=== PATIENT | female | born 1950 | race Caucasian/White ===

== ENCOUNTER 2020-10-24 07:29 | Day surgery (SDC) | payer MEDICARE, SELFPAY ==
[2020-10-24 07:49] VITALS: BP 169/94; PULSE 78; RESP 16; TEMP 35.9; O2SAT 96
[2020-10-24] MEDS: Tropicam./Phenyleph. (1/2.5%) 5 ML BTL OS ×3 (07:58→08:23)
[2020-10-24] MEDS: Balanced Salt Soln.-PLUS 500 ML BAG (09:08)
[2020-10-24] MEDS: Duovisc Viscoelastic System EACH 1 EACH (09:09)
[2020-10-24] MEDS: Lidocaine 1% Pres-Free 5 ML VIAL (09:10)
[2020-10-24] MEDS: Lidocaine 2% Jelly 6 ML SYR (09:11)
[2020-10-24] MEDS: Povidone-Iodine Ophth 30 ML BTL (09:15)
[2020-10-24] MEDS: Tetracaine 0.5% 4 ML BTL OS (09:16)
[2020-10-24] MEDS: Trypan Blue 0.06% 0.5 ML SYR (09:16)
[2020-10-24 09:26] VITALS: BP 159/84; PULSE 84; RESP 16; TEMP 36.2; O2SAT 93
--- NOTE | 2020-10-24 09:27 | W.PM.DSUDISC ---
Discharge Plan Disposition Patient Disposition: HOME Condition: Good Discharge Details Attending Provider: Abdiaziz Burroughs Primary Care Provider: Lata Sierra Home Meds and New Rx's Prescriptions: No Action carvedilol 25 mg tablet 25 mg PO BID RF: 0 carvedilol 12.5 mg tablet 12.5 mg PO BID RF: 0 simvastatin 10 mg Tablet 10 mg PO DAILY RF: 0 potassium chloride [Klor-Con 10] 10 mEq Tablet Extended Release 20 meq PO DAILY RF: 0 omeprazole 40 mg capsule,delayed release(DR/EC) 40 mg PO DAILY RF: 0 calcium carbonate [Calcium 500] 500 mg calcium (1,250 mg) Tablet 500 mg PO DAILY RF: 0 ferrous sulfate 325 mg (65 mg iron) Tablet 325 mg PO DAILY RF: 0 montelukast [Singulair] 10 mg Tablet 10 mg PO DAILY RF: 0 hydrochlorothiazide 25 mg Tablet 37.5 mg PO DAILY RF: 0 mupirocin 2 % ointment 1 applic TOPICAL BID PRNRF: 0 triamcinolone acetonide 0.1 % lotion 1 applic TOPICAL BID RF: 0 albuterol sulfate [ProAir HFA] 90 mcg/actuation Hfa Aerosol Inhaler 2 puff INHALATION Q6H PRNRF: 0 fluticasone propionate 50 mcg/actuation [place],Suspension 2 spray INTRANASAL DAILY RF: 0 clotrimazole 1 % cream 1 applic TOPICAL BID PRNRF: 0 loratadine 10 mg Tablet 10 mg PO DAILY RF: 0 amoxicillin-pot clavulanate 875-125 mg tablet 1 tab PO BID RF: 0 Anoro Ellipta 62.5-25 mcg/actuation Blister With Device 1 ea INHALATION DAILY RF: 0 calcium carbonate [Oysco-500] 500 mg calcium (1,250 mg) Tablet 500 mg PO RF: 0 exemestane [Aromasin] 25 mg Tablet 25 mg PO DAILY RF: 0 zolpidem 10 mg tablet 5 mg PO HS RF: 0 Afinitor 10 mg Tablet 10 mg PO DAILY RF: 0 Discharge Instructions Stand Alone Forms: Post-op Topical Cataract, Press Ganey (DSU) Discharge Orders Discharge Orders: Discharge Order (Routine); Ordered 10/24/20 Ordered By: Abdiaziz Burroughs DS: Diagnosis Discharge Diagnosis (1) Cortical cataract of left eye: Status: Resolved (2) Nuclear sclerotic cataract of left eye: Status: Resolved
--- NOTE | 2020-10-24 09:28 | ROE_ITS ---
Date of service: 10/24/20 Time of Service: 09:28 Operative Note Operative Note DATE OF PROCEDURE: 10/24/20 PRE-OP DIAGNOSIS: Nuclear/cortical cataract, left eye Poor red reflex, left eye secondary to cataract POST-OP DIAGNOSIS: same PROCEDURE: Cataract extraction using phacoemulsification with intraocular lens implant, left eye, using capsular staining with Vision Blue SURGEON: Abdiaziz Burroughs Refer to Anesthesia Record COMPLICATIONS: None Patient was transported to: same day Patient's condition: stable Implants: Donte and Donte / [employer] Tecnis [id number] Indications: Progressive decreased vision due to cataract, left eye, with poor red reflex Procedure Description: CATARACT SURGERY OPERATIVE REPORT PREOPERATIVE DIAGNOSIS: 1. Nuclear/cortical cataract, left eye 2. Poor red reflex secondary to #1 POSTOPERATIVE DIAGNOSIS: Same OPERATION: 1. Cataract extraction using phacoemulsification with posterior chamber intraocular lens implant, left eye. 2. Capsular staining with Vision Blue IOL: IOL Accounting Analyst/Model: Donte & Donte / UMA Tecnis [id number] IOL Power: + 20.0 diopters IOL Serial Number: [id number] Optic Diameter: 6.0 mm Haptic/Overall Diameter: 13.0 mm PHACO INFO: [employer]ur[employer] Vision System with OZil and Active Fluidics Cumulative Dispersed Energy (CDE): 8.77 seconds SURGEON: Abdiaziz Burroughs MD, WAYNE ANESTHESIA: Monitored A [facility] Care (MAC), with local sub-tenon's anesthetic infiltration COMPLICATIONS: None SPECIMENS: None INDICATIONS FOR PROCEDURE: The patient is a 70-year-old lady with history of diminished visual acuity in her left eye. She is noted to have a significant nuclear and cortical cataract. The option of cataract surgery was offered to the patient and she wished to proceed. PROCEDURE: The correct surgical eye was identified and marked as the left eye and the pupil was dilated in the preoperative area using mydriatics and cycloplegics. The dilated pupil size was 6.5 mm. She elected to proceed without sedation. The patient was brought to the operating room where car diopulmonary monitoring was instituted and surgical time-out was performed, confirming the correct operative eye and IOL power. Topical anesthesia was administered and ophthalmic povidone-iodine 5% was instilled into the conjunctival fornices. Lidocaine gel was applied to the cornea and the jamie-ocular area was prepped with Betadine 10% solution and draped in the usual sterile fashion for intraocular surgery, including an aperture drape. A Tegaderm transparent film dressing was cut in half and used to cover the lashes and lid margins. Care was taken to sequester the lashes and lid margins under the Tegaderm dressing. A lid speculum was placed between the lids of the operative eye and the Isauro-Rubén operating microscope was maneuvered into position. Peterson scissors were then used to make a conjunctival buttonhole approximately 6mm posterior to the limbus in the inferonasal quadrant. Blunt dissection was carried out to expose bare sclera, and a blunt-tipped sub-tenon?s anesthesia cannula was introduced and passed posteriorly along the globe where non-preserved plain lidocaine was injected into posterior sub-Tenon?s space. A sideport knife was used to make a paracentesis port superiorly/superiortemporally. Intraocular phenylephrine/lidocaine was injected int the anterior chamber.. Air was then injected into the anterior chamber, followed by Vision Blue, which was painted over the anterior capsule and then irrigated out using BSS. The anterior chamber was filled with viscoelastic. A 2.4mm keratome knife was used to create a half-thickness groove at the limbus and then to construct a three-plane near-clear corneal tunnel extending 2.0mm into clear cornea at the 3:00 position. A flap was raised on the anterior capsule and capsulorhexis forceps were used to complete a continuous curvilinear capsulorhexis of 5.0 mm. Capsulorhexis was challenging due to constant patient eye movement. Balanced salt solution was then used to perform cortical cleaving hydrodis section and nuclear hydrodelineation until the lens could be freely rotated within the capsular bag. The lens nucleus was then disassembled and removed within the capsular bag and iris plane using phacoemulsification. Residual cortical material was removed using the 45-degree angled silicone I/A tip with 0.3mm port. The posterior capsule was carefully polished to remove as much residual lens epithelial cells as safely possible. The capsular bag was then inflated and the anterior chamber deepened with viscoelastic. The lens implant described above was inserted into the capsular bag using the UMA [place] Injector. A Kuglen hook was used to dial the IOL into position. Residual viscoelastic was then removed first from posterior to the IOL, then from the anterior chamber using the I/A handpiece. The lens implant was noted to center nicely within the capsular bag. The incisions were stromally hydrated, and the anterior chamber was reformed using BSS. Then 0.5cc of moxifloxacin 1.0mg/ml were injected into the capsular bag and anterior chamber. The incisions were checked with a Weck spear and found to be secure. Several drops of ophthalmic povidone-iodine 5% were then applied to the eye followed by two drops of Imprimis combination prednisolone/moxifloxacin/nepafenac solution. The drapes were removed and a clear plastic protective eye shield was placed over the eye. The patient was then returned to Same Day Surgery in stable condition.
== END 2020-10-24 09:53 | disposition home or self-care (01) ==
PROVIDERS: PCP Internal Medicine; Visit Provider Ophthalmology
PROC: (CPT 66984; principal; 2020-10-24 09:30)
DX: H25.12 Age-related nuclear cataract, left eye (principal); H57.09 Other anomalies of pupillary function; J44.9 Chronic obstructive pulmonary disease, unspecified; G47.33 Obstructive sleep apnea (adult) (pediatric); K21.9 Gastro-esophageal reflux disease without esophagitis; I25.10 Atherosclerotic heart disease of native coronary artery without angina pectoris
CPT/HCPCS: 66984; V2632

== ENCOUNTER 2020-11-07 18:51 | PSDC | payer MEDICARE, SELFPAY | END 2020-11-07 18:52 | disposition home or self-care (01) | LOC: SUR 11-10 08:23 | PROVIDERS: PCP Internal Medicine; Visit Provider Ophthalmology | DX: R69 Illness, unspecified (principal) ==

== ENCOUNTER 2021-03-20 07:30 | Day surgery (SDC) | payer MEDICARE, SELFPAY ==
[2021-03-20 08:02] VITALS: BP 164/96; PULSE 67; RESP 16; TEMP 35.9; O2SAT 96
[2021-03-20] MEDS: Tropicam./Phenyleph. (1/2.5%) 5 ML BTL OD ×3 (08:13→08:24)
--- NOTE | 2021-03-20 08:40 | ANES.PREOP_ITS ---
General Info Date of Service Date Performed: 03/20/21 Height: 5 ft 2 in Weight: 55.6 kg Body Mass Index (BMI): 22.4 Surgical Procedure: Operation Date: 03/20/21 09:40 Proposed Procedures Side Surgeon p Cataract Extraction with IOL Implant Right Abdiaziz Burroughs MD Meds Allergies and Home Medications Allergies Allergy/AdvReac Type Severity Reaction Status Date / Time tetanus and diphtheria Allergy Unverified 03/18/21 15:49 toxoids Home Medication Medication Instructions Recorded albuterol sulfate [ProAir HFA] 2 puff INHALATION Q6H PRN 10/22/20 calcium carbonate [Calcium 500] 500 mg PO DAILY 10/22/20 carvedilol 12.5 mg PO BID 10/22/20 carvedilol 25 mg PO BID 10/22/20 ferrous sulfate 325 mg PO DAILY 10/22/20 fluticasone propionate 2 spray INTRANASAL DAILY 10/22/20 montelukast [Singulair] 10 mg PO DAILY 10/22/20 omeprazole 40 mg PO DAILY 10/22/20 simvastatin 10 mg PO DAILY 10/22/20 umeclidinium-vilanterol [Anoro 1 ea INHALATION DAILY 10/22/20 Ellipta] zolpidem 5 mg PO HS 10/24/20 denosumab [Xgeva] 120 mg SUBCUT Q4W 03/20/21 Current Visit Medications: Current Medications Generic Name Dose Route Start Last Admin Trade Name Freq PRN Reason Stop Dose Admin Acetaminophen 1,000 mg 03/20/21 06:00 Acetaminophen 500 Mg Tab PO Q4H PRN PRN Miscellaneous Medication 0 ml 03/20/21 06:00 Prednisolone 1%, Moxifloxacin 0.5%, Nepafenac 0.1% 5ml Btl OD DIRECTED CULLEN Miscellaneous Medication 0 ml 03/20/21 06:00 03/20/21 08:24 Tropicam./Phenyleph. (1/2.5%) 5 Ml Btl OD 1 drp DIRECTED CULLEN Administration Tetracaine HCl 0 ml 03/20/21 06:00 Tetracaine 0.5% 4 Ml Btl OD DIRECTED CULLEN PFSH Active Problems Active Problems: Problem Status Onset Code Cortical cataract of left eye H26.9 Nuclear sclerotic cataract of left eye H25.12 Nuclear sclerotic cataract of right eye H25.11 Cortical cataract of right eye H26.9 Posterior subcapsular age-related cataract, right eye H25.041 Medical History Medical History Breast cancer COPD (chronic obstructive pulmonary disease) Coronary artery disease COVID-19 vaccine series not completed pt. stated she recieved 1 of 2 of moderna vaccine and had a reaction to it where (L) lung filled up with fluid and had to have it drained x3 @ [facility], and also stated she could not walk or eat. GI bleeding Hx of myocardial infarction 1999 1 stent Hyperlipidemia Hypertension GABBI (obstructive sleep apnea) Surgical History Surgical History History of hysterectomy Hx of cholecystectomy Hx of colonoscopy Hx of left mastectomy Hx of tonsillectomy Tobacco Smoking/Tobacco Use Status: Current every day Tobacco Type: cigarettes Alcohol Alcohol Intake: never Substance Use Substance use type: does not use Vital Signs and Lab Results Vital Signs Most Recent Vital Signs in EMR: Most Recent Vital Signs Temp Pulse Resp BP Pulse Ox 35.9 C L 67 16 164/96 H 96 03/20/21 08:02 03/20/21 08:02 03/20/21 08:02 03/20/21 08:02 03/20/21 08:02 Lab Results Blood Type / Crossmatch: No Data to Display Complete Blood Count: No Data to Display Complete Metabolic Panel: No Data to Display Liver Function Panel: No Data to Display Coagulation Panel: No Data to Display Cardiac Panel: No Data to Display Arterial Blood Gas: No Data to Display Venous Blood Gas: No Data to Display Pancreas Panel: No Data to Display Thyroid Panel: No Data to Display Infectious Disease: No Data to Display Blood Cultures: No Data to Display Toxicology Panel: No Data to Display Anesthesia Assessment and Plan Anesthesia History Personal History: No History of Anesthesia Complications Family History: No Family History of Anesthesia Complications Exercise Tolerance Exercise Tolerance: Metabolic Equivalents>4 Pertinent Negatives Pertinent Negatives: No Symptoms of GERD Cardiac & Pulmonary Exam Cardiac Exam: Normal S1/S2 Heart Sounds Pulmonary Exam: Clear Bilateral Breath Sounds Airway Exam Known Difficult Airway: No Mallampati Class: 2 Mouth Opening: Normal (> 3cm) Thyromental Distance: Greater than 3 cm Neck Range of Motion: Full ROM Neck Circumference: Normal Teeth Condition: Normal Dentition ASA Classification ASA Score: ASA 3 Emergency Case?: No NPO Status NPO Status: NPO Clears >2 hours, Solids >8 hours Anesthesia Plan Resuscitation Status: Full Code Anesthesia Technique: MAC Anesthesia Airway Planned: Natural Airway Monitors Used: Standard Monitors
[2021-03-20 08:43] VITALS: BMI 22.4
[2021-03-20] MEDS: Tetracaine 0.5% 4 ML BTL OD (09:09)
[2021-03-20] MEDS: Balanced Salt Soln.-PLUS 500 ML BAG (09:09)
[2021-03-20] MEDS: Lidocaine 2% Jelly 6 ML SYR (09:10)
[2021-03-20] MEDS: Lidocaine 1% Pres-Free 5 ML VIAL (09:10)
[2021-03-20] MEDS: Duovisc Viscoelastic System EACH 1 EACH (09:10)
[2021-03-20] MEDS: Povidone-Iodine Ophth 30 ML BTL (09:11)
[2021-03-20 09:25] VITALS: BP 167/88; PULSE 77; RESP 18; TEMP 36.2; O2SAT 93
--- NOTE | 2021-03-20 09:32 | W.PM.DSUDISC ---
Discharge Plan Disposition Patient Disposition: HOME Condition: Good Discharge Details Attending Provider: Abdiaziz Burroughs Primary Care Provider: Lata Sierra Home Meds and New Rx's Prescriptions: No Action carvedilol 25 mg tablet 25 mg PO BID RF: 0 carvedilol 12.5 mg tablet 12.5 mg PO BID RF: 0 simvastatin 10 mg Tablet 10 mg PO DAILY RF: 0 omeprazole 40 mg capsule,delayed release(DR/EC) 40 mg PO DAILY RF: 0 calcium carbonate [Calcium 500] 500 mg calcium (1,250 mg) Tablet 500 mg PO DAILY RF: 0 ferrous sulfate 325 mg (65 mg iron) Tablet 325 mg PO DAILY RF: 0 montelukast [Singulair] 10 mg Tablet 10 mg PO DAILY RF: 0 albuterol sulfate [ProAir HFA] 90 mcg/actuation Hfa Aerosol Inhaler 2 puff INHALATION Q6H PRNRF: 0 fluticasone propionate 50 mcg/actuation [place],Suspension 2 spray INTRANASAL DAILY RF: 0 Anoro Ellipta 62.5-25 mcg/actuation Blister With Device 1 ea INHALATION DAILY RF: 0 zolpidem 10 mg tablet 5 mg PO HS RF: 0 Xgeva 120 mg/1.7 mL (70 mg/mL) Solution 120 mg SUBCUT Q4W RF: 0 Discharge Instructions Stand Alone Forms: Post-op Topical Cataract, Omar Chavarria (DSU) Discharge Orders Discharge Orders: Discharge Order (Routine); Ordered 03/20/21 Ordered By: Abdiaziz Burroughs DS: Diagnosis Discharge Diagnosis (1) Nuclear sclerotic cataract of right eye: Status: Resolved (2) Cortical cataract of right eye: Status: Resolved (3) Posterior subcapsular age-related cataract, right eye: Status: Resolved
--- NOTE | 2021-03-20 09:33 | W.PM.OP ---
Date of service: 03/20/21 Time of Service: 09:33 Operative Note Operative Note DATE OF PROCEDURE: 03/20/21 PRE-OP DIAGNOSIS: Nuclear/cortical/posterior subcapsular cataract, right eye POST-OP DIAGNOSIS: same PROCEDURE: Cataract extraction using phacoemulsification with intraocular lens implant, right eye SURGEON: Abdiaziz Burroughs ANESTHESIA TYPE: Local By Surgeon and MAC Refer to Anesthesia Record ESTIMATED BLOOD LOSS: 0 PATHOLOGY: none sent COMPLICATIONS: None Patient was transported to: same day Patient's condition: stable Implants: Donte & Donte/UMA Tecnis [id number] Indications: Progressive visual loss due to cataract, right eye Procedure Description: CATARACT SURGERY OPERATIVE REPORT PREOPERATIVE DIAGNOSIS: 1. Nuclear/cortical/posterior subcapsular cataract, right eye POSTOPERATIVE DIAGNOSIS: Same OPERATION: 1. Cataract extraction using phacoemulsification with posterior chamber intraocular lens implant, right eye. IOL: IOL Concrete Mixing Plant Superintendent/Model: Donte & Donte / UMA Tecnis [id number] IOL Power: + 19.5 diopters IOL Serial Number: [id number] Optic Diameter: 6.0mm Haptic/Overall Diameter: 13.0mm PHACO INFO: [employer] Vision System with OZil and Active Fluidics Cumulative Dispersed Energy (CDE): 12.92 seconds SURGEON: Abdiaziz Burroughs MD, WAYNE ANESTHESIA: Monitored Anesthesia Care (MAC), with local sub-tenon's anesthetic infiltration COMPLICATIONS: None SPECIMENS: None INDICATIONS FOR PROCEDURE: Patient is a 70-year-old lady with history of diminished visual acuity in both eyes secondary to the development of bilateral nuclear/cortical/posterior subcapsular cataract. She has already undergone cataract surgery in her left eye and is doing well postoperatively. She now presents for cataract surgery in the right eye. PROCEDURE: The correct surgical eye was identified and marked as the right eye and the pupil was dilated in the preoperative area using mydriatics and cycloplegics. The dilated pupil size was 6.0 mm. Oral sedation was administered in the form of an Imprimis MKO Melt (midazolam 3mg/ketamine 25mg/ondansetron 2mg). The patient was brought to the operating room where cardiopulmonary monitoring was instituted and surgical time-out was performed, confirming the correct operative eye and IOL power. Topical anesthesia was administered and ophthalmic povidone-iodine 5% was instilled into the conjunctival fornices. Lidocaine gel was applied to the cornea and the jamie-ocular area was prepped with Betadine 10% solution and draped in the usual sterile fashion for intraocular surgery, including an aperture drape. A Tegaderm transparent film dressing was cut in half and used to cover the lashes and lid margins. Care was taken to sequester the lashes and lid margins under the Tegaderm dressing. A lid speculum was placed between the lids of the operative eye and the Isauro-Rubén operating microscope was maneuvered into position. Peterson scissors were then used to make a conjunctival buttonhole approximately 6mm posterior to the limbus in the inferonasal quadrant. Blunt dissection was carried out to expose bare sclera, and a blunt-tipped sub-tenon?s anesthesia cannula was introduced and passed posteriorly along the globe where non-preserved plain lidocaine was injected into posterior sub-Tenon?s space. A sideport knife was used to make a paracentesis port inferotemporally. Intraocular phenylephrine/lidocaine was injected into the anterior chamber. The anterior chamber was filled with viscoelastic. A 2.4mm keratome knife was used to create a half-thickness groove at the limbus and then to construct a three-plane near-clear corneal tunnel extending 2.0mm into clear cornea superiortemporally. A flap was raised on the anterior capsule and capsulorhexis forceps were used to complete a continuous curvilinear capsulorhexis of 5.5 mm. Balanced salt solution was then used to perform cortical cleaving hydrodissection and nuclear hydrodelineation until the lens could be freely rotated within the capsular bag. The lens nucleus was then disassembled and removed within the capsular bag and iris plane using phacoemulsification. Residual cortical material was removed using the I/A handpiece. The posterior capsule was carefully polished to remove as much residual lens epithelial cells as safely possible. The capsular bag was then inflated and the anterior chamber deepened with viscoelastic. The lens implant described above was inserted into the capsular bag using the UMA [place] Injector. A Kuglen hook was used to dial the IOL into position. Residual viscoelastic was then removed first from posterior to the IOL, then from the anterior chamber using the I/A handpiece. The lens implant was noted to center nicely within the capsular bag. The incisions were stromally hydrated, and the anterior chamber was reformed using BSS. Then 0.5cc of moxifloxacin 1.0mg/ml were injected into the capsular bag and anterior chamber. The incisions were checked with a Weck spear and found to be secure. Several drops of ophthalmic povidone-iodine 5% were then applied to the eye followed by two drops of Imprimis combination prednisolone/moxifloxacin/nepafenac solution. The drapes were removed and a clear plastic protective eye shield was placed over the eye. The patient was then returned to Same Day Surgery in stable condition.
--- NOTE | 2021-03-20 09:46 | W.ANESPOSTOP ---
Postoperative Evaluation Date, Time and Location Date Performed: 03/20/21 Time Performed: 09:30 Patient Location: Day Surgery Unit Vital Signs Most Recent Imported Vital Signs: Most Recent Vital Signs Temp Pulse Resp BP Pulse Ox 36.2 C L 77 18 167/88 H 93 03/20/21 09:25 03/20/21 09:25 03/20/21 09:25 03/20/21 09:25 03/20/21 09:25 Pain Score Most Recent Pain Score: Most Recent Pain Score Pain Level 0 03/20/21 09:25 Assessment Mental Status: Awake (Alert & Oriented to Patient Baseline) Airway and Respiratory Function: Patent airway with normal (patient baseline) respiratory exam Cardiovascular Function: Hemodynamically Stable Hydration Status: Adequately Hydrated Nausea & Vomiting: No Nausea or Vomiting Pain: Pt. Denies Any Pain Peripheral Nerve Block: Patient did not receive a nerve block
== END 2021-03-20 09:48 | disposition home or self-care (01) ==
PROVIDERS: PCP Internal Medicine; Visit Provider Ophthalmology
PROC: (CPT 66984; principal; 2021-03-20 09:30)
DX: H25.041 Posterior subcapsular polar age-related cataract, right eye (principal); J44.9 Chronic obstructive pulmonary disease, unspecified; I10 Essential (primary) hypertension; G47.33 Obstructive sleep apnea (adult) (pediatric)
CPT/HCPCS: 66984; V2632